=== PATIENT | female | born 1960 | race Caucasian/White ===

== ENCOUNTER 2017-09-08 19:10 | Inpatient (IN) | payer OTHER, SELFPAY ==
[~2017-09-08 19:10] MED LIST: Dexamethasone 20 MG/5 ML VIAL ONE; Glycopyrrolate 0.2 MG/ML 5 ML SYRINGE ONE; ISOVUE-370 76%-LOCM 1 ML ONE; Iopamidol 370 76% 50 ML VIAL FS ONE; Ketorolac Tromethamine 30 MG/ML VIAL ONE; Lidocaine 1% PF 5 ML VIAL ONE; Ondansetron HCl/PF 4 MG/2 ML Vial ONE; PROPOFOL 200 MG/20 ML VIAL ONE
[2017-09-08] MEDS ORDERED: Ondansetron HCl/PF 4 MG/2 ML Vial ONE (19:40)
[2017-09-08 19:43] LABS: Hemoglobin 18.2 g/dL (12.0-16.0); Mean Corpuscular HGB CONC 33.1 g/dL (32.0-36.0); Mean Corpuscular Hemoglobin 29.4 pg (27.0-31.0); Mean Corpuscular Volume 88.8 fl (81.0-99.0); Mean Platelet Volume 6.9 fL (7.4-10.4); Platelet Count 280 thou/uL (130-400); RBC Distribution Width 13.3 % (11.5-14.5); Red Blood Cell (RBC) Count 6.18 mill/uL (4.20-5.40); White Blood Cell (WBC) Count 33.2 thou/uL (4.8-10.8)
[2017-09-08 20:01] LABS: Band 3 % (5-11); Lymphocytes 4 % (21-51); MDiff Complete? YES; Monocytes 5 % (0-10); Neutrophil 88 % (42-75)
[2017-09-08 20:03] LABS: ALT (SGPT) 26 U/L (8-55); AST (SGOT) 17 U/L (5-34); Albumin 4.5 g/dL (3.5-5.0); Alkaline Phosphatase 134 U/L (40-150); Anion Gap 19 mmol/L (10-20); BUN (Urea Nitrogen) 20 mg/dL (9.8-20.1); Bilirubin, Total 2.1 mg/dL (0.2-1.2); Calc. Creatinine Clearance 0 mL/min (70-130); Calcium 10.5 mg/dL (7.8-10.44); Carbon Dioxide 26 mmol/L (22-29); Chloride 96 mmol/L (98-107); Estimated GFR-MDRD 56; Globulin 3.6 g/dL (2.4-3.5); Glucose 159 mg/dL (70-105); Lipase 24 U/L (8-78); Potassium 3.5 mmol/L (3.5-5.1); Protein, Total 8.1 g/dL (6.0-8.3); Sodium 137 mmol/L (136-145)
[2017-09-08] MEDS ORDERED: Promethazine HCl 25 MG/ML VIAL ONE (20:39)
--- NOTE | 2017-09-08 21:49 | CT ---
ABDOMEN AND PELVIC CT WITH CONTRAST 09/08/17 No prior comparison. INDICATION: Nausea and vomiting. FINDINGS: There is a large hernia of the right lower abdominal wall containing small bowel and colon. The small bowel is inflamed with surrounding fat stranding. There is a borderline size to the small bowel cristiana gurwinder, diffusely. Enteric contrast is present throughout the proximal to mid small bowel but not presen t distally limiting assessment in this regard. There is no free air or portal venous gas. No focal he patic or splenic lesion. There is a punctate hypodensity of the hepatic parenchyma, too small to furt her characterize. There is granulomatous calcification. No acute abnormality of the kidneys or adrena l glands. There is vascular calcification. There is a cyst of the left adnexa. The lung bases are toney ar. Scattered osseous degenerative change. IMPRESSION: 1. Large ventral abdominal wall hernia of the right lower quadrant with inflamed bowel, notably small bowel loops. There is generalized mild distention of the small bowel caliber which may be on e basis of a developing mechanical obstruction. Surgical consultation is warranted in this regard. 2. Cyst of left adnexa is suspected. Recommend followup with dedicated pelvic ultrasound. POS: [facility]
[2017-09-08] MEDS ORDERED: CEFAZOLIN/Water 2 GM/20 ML SYRINGE ONE (21:59)
[2017-09-08] MEDS ORDERED: Lidocaine 2% PF 5 ML VIAL ONE (22:37)
[2017-09-08] MEDS ORDERED: Bupivacaine/Epinephrine 0.25% 30 ML VIAL ONE (22:37)
[2017-09-08] MEDS ORDERED: Fentanyl 250 MCG/5 ML VIAL ONE (22:47)
--- NOTE | 2017-09-08 22:54 | HP ---
HISTORY OF PRESENT ILLNESS: Ms. Maribell Kamara is a 57-year-old female who lives in [facility], has an incarcerated incisional hernia, infraumbilical, probably from a tubal ligation incision . She has had this for a day. She has a large pannus, is morbidly obese, although she has lost inte ntionally 130 pounds since 09/2014 by changing her diet. This resolved her type 2 diabetes. She pre sents to the emergency room, evaluated by Dr. Gianni De La Garza. BUN and creatinine are normal. Glucose 159 , calcium 10.5, bilirubin 2.1. White count 33 and hemoglobin 18. CAT scan of abdomen and pelvis rev eals incarcerated ventral hernia with bowel and bowel obstruction. Left adnexal cyst was incidentall y noted. ALLERGIES: None. SOCIAL HISTORY: Tobacco none, although she smokes marijuana daily. ALCOHOL: Socially. MEDICATIONS: Losartan 50 mg a day, amlodipine 10 mg a day and Humira injections once a week. PAST SURGICAL HISTORY: Bilateral tubal ligation, laparoscopic cholecystectomy. She has never had a colonoscopy. PAST MEDICAL HISTORY: Psoriatic arthritis; hypertension, resolved; type 2 diabetes mellitus with int entional weight loss of a 130 pounds since September 2014. PRIMARY CARE PHYSICIAN: Dr. Espinoza. ELECTRIC FREIGHT CAR OPERATOR: Dr. Tammie Guzman. REVIEW OF SYSTEMS: Ten-point noncontributory. She has never had any cardiac symptoms. She has neve r had a cardiac stress test. She has never had a colonoscopy. SOCIAL: Patient is single. Her good friend is with her in the emergency room. PHYSICAL EXAMINATION: VITAL SIGNS: Weight 122 kilograms, blood pressure 107/60 and temperature 99.5 degrees. HEENT: Unremarkable. LUNGS: Clear to auscultation. CARDIAC: Regular rate and rhythm without murmur or gallop. ABDOMEN: Soft and obese. Large pannus incarcerated ventral hernia below the umbilicus. EXTREMITIES: Unremarkable. ASSESSMENT AND PLAN: 1. Incarcerated hernia. We will plan repair tonight. Risk of infection, bleeding, reoperation, rec urrence of hernia discussed. 2. Hypertension. 3. Rheumatoid arthritis, on Humira.
[2017-09-09] MEDS ORDERED: HYDROmorphone 0.5 MG/0.5 ML SYRINGE ONE (00:03)
[2017-09-09] MEDS ORDERED: SUGAMMADEX SODIUM 500 MG/5 ML VIAL ONE (00:08)
[2017-09-09] MEDS ORDERED: hydrALAZINE 20 MG/ML VIAL SLOW IVP PRN (00:18)
[2017-09-09] MEDS ORDERED: Insulin Regular 300 UNITS/3 ML VIAL SC PRN (00:18)
[2017-09-09] MEDS ORDERED: Dextrose 50% Abboject 50 ML SYRINGE SLOW IVP PRN (00:18)
[2017-09-09] MEDS ORDERED: Dextrose 5% in Water 1,000 ML IV PRN (00:18)
[2017-09-09] MEDS ORDERED: Ondansetron HCl/PF 4 MG/2 ML Vial IVP PRN (00:21)
[2017-09-09] MEDS ORDERED: Promethazine HCl 25 MG/ML VIAL IM PRN ×2 (00:21→00:24)
[2017-09-09] MEDS ORDERED: Promethazine HCl 25 MG/ML VIAL SLOW IVP PRN (00:21)
[2017-09-09] MEDS ORDERED: Fentanyl 5000 MCG/250 ML CADD IVPB PRN (00:24)
[2017-09-09] MEDS ORDERED: Naloxone HCl 0.4 mg/ml Vial IV PRN (00:24)
[2017-09-09] MEDS ORDERED: diphenhydrAMINE 25 MG CAP PO PRN (00:24)
[2017-09-09] MEDS ORDERED: diphenhydrAMINE 50 MG/ML VIAL IM PRN (00:24)
[2017-09-09] MEDS ORDERED: diphenhydrAMINE 50 MG/ML VIAL IVP PRN (00:24)
[2017-09-09] MEDS ORDERED: Zolpidem Tartrate 5 MG TAB PO PRN (00:24)
[2017-09-09] MEDS ORDERED: Communication Order-Pharmacy FS SCH (00:30)
[2017-09-09] MEDS ORDERED: Fentanyl 100 MCG/2 ML VIAL ONE (00:35)
[2017-09-09 02:05] VITALS: BMI 39.7
[2017-09-09] MEDS: Lactated Ringer's 1,000 ML IV SCH ×4 (02:23→20:55)
[2017-09-09] MEDS: Acetaminophen 1,000 MG in Premix Bag 1 BAG IVPB SCH ×3 (05:34→19:50)
[2017-09-09] MEDS: Ketorolac Tromethamine 30 MG/ML VIAL IVP SCH ×3 (05:50→18:47)
[2017-09-09 07:03] LABS: Chloride 100 mmol/L (98-107); Potassium 4.1 mmol/L (3.5-5.1); Sodium 136 mmol/L (136-145)
[2017-09-09 07:04] LABS: Calcium 9.8 mg/dL (7.8-10.44); Glucose 164 mg/dL (70-105)
[2017-09-09 07:06] LABS: Anion Gap 14 mmol/L (10-20); Carbon Dioxide 26 mmol/L (22-29)
[2017-09-09 07:08] LABS: Calc. Creatinine Clearance 130 mL/min (70-130); Estimated GFR-MDRD 60
[2017-09-09 07:09] LABS: BUN (Urea Nitrogen) 22 mg/dL (9.8-20.1)
[2017-09-09 07:58] LABS: Band 13 % (5-11); Hemoglobin 15.8 g/dL (12.0-16.0); Lymphocytes 4 % (21-51); MDiff Complete? YES; Mean Corpuscular Volume 90.4 fl (81.0-99.0); Mean Platelet Volume 7.3 fL (7.4-10.4); Monocytes 3 % (0-10); Neutrophil 80 % (42-75); Platelet Count 201 thou/uL (130-400); RBC Distribution Width 13.3 % (11.5-14.5); Red Blood Cell (RBC) Count 5.46 mill/uL (4.20-5.40); White Blood Cell (WBC) Count 26.4 thou/uL (4.8-10.8)
--- NOTE | 2017-09-09 08:15 | OP ---
DATE OF PROCEDURE: 09/08/2017 PREOPERATIVE DIAGNOSES: Strangulated incisional hernia (prior bilateral tubal ligation), morbid obes ity with more than 100-pound intentional weight loss in the last year and a half. POSTOPERATIVE DIAGNOSES: Strangulated incisional hernia (prior bilateral tubal ligation), morbid obe sity with more than 100-pound intentional weight loss in the last year and half. PROCEDURES PEFORMED: Repair of strangulated incisional hernia, infraumbilical with small-bowel resec tion and anastomosis and reduction of cecum and resection of omentum. Repair of fascia without mesh. Wound VAC application. SURGEON: Dr. Ignacio Coyne. ANESTHESIA: General. ESTIMATED BLOOD LOSS: 20 mL BLOOD TRANSFUSED: None. PROCEDURE IN DETAIL: The patient was taken to the operating room where under general anesthesia, abd omen was prepared with ChloraPrep, draped in routine fashion. Incision was made from around the umbi licus inferiorly down through the skin and subcutaneous tissue over the incarcerated hernia mass. He rnia sac identified, opened and adhesion was taken down with the LigaSure. Hernia sac resected with the LigaSure. Fascial edges were identified and through this probably a 6 cm defect. There was inca rcerated cecum and small bowel. The cecum was reduced. Once the omentum was resected with the LigaS ure, small bowel was necrotic, black. Viable small bowel mesentery divided with the cautery and seri ally divided with the LigaSure and small bowel divided on either end with 2 fires of the ANGELITO stapler. Anastomosis was created with a ANGELITO stapling technique blue load. Anastomosis created. Common defe ct closed with ANGELITO stapler. Mesenteric defect was closed with 3-0 silk [id number] sutures. Nika stomosis was reinforced with interrupted Lembert suture of 3-0 silk. Good anastomosis was palpated. Bowel contents were reduced in the abdominal cavity. Fascia was dissected free and approximated wit h continuous suture of #1 PDS. Skin and subcutaneous tissues were irrigated and irrigant evacuated. Hemostasis was noted. The umbilicus was tacked down to the fascia with #1 PDS. The umbilical skin was approximated with ellen, otherwise wound left open. Wound VAC was applied. Patient tolerated the procedure well. An NG tube was palpated in good position. Holder catheter left in place.
[2017-09-09] MEDS ORDERED: Chloraseptic Spray 180 ml Bottle PO PRN (08:28)
[2017-09-09] MEDS: Enoxaparin Sodium 40 MG/0.4 ML SYRINGE SC SCH (09:02)
[2017-09-09] MEDS: Famotidine/PF 20 mg/2ml Vial SLOW IVP SCH ×2 (09:03→20:55)
--- NOTE | 2017-09-09 11:42 | PRG ---
DATE OF SERVICE: 09/09/2017 SUBJECTIVE: Maribell Kamara is doing well today. NG tube is in place. Holder is removed. Acti vity level is good. She is walking in the hallways repeatedly/constantly. PHYSICAL EXAMINATION: VITAL SIGNS: 98.6 degrees, 105, 119/76. LUNGS: Clear to auscultation. CARDIAC: Regular rate and rhythm without murmur or gallop. ABDOMEN: Soft. Diminished bowel sounds. Wound VAC in place. NG tube in place. NG tube output pos toperatively so far not recorded. Holder output 300 mL postoperatively. LABORATORY DATA: This morning, her labs 26,000 white count, hemoglobin 15. Basic metabolic profile is normal. Glucose is 132-164. Overall, patient is doing well. Good activity level. Continue NG tube. Continue activity level. H opefully, can remove NG tube tomorrow. Continue wound VAC abdominal wound.
[2017-09-09] MEDS: Ondansetron HCl/PF 4 MG/2 ML Vial IVP PRN ×2 (13:49→18:47)
[2017-09-10] MEDS: Ketorolac Tromethamine 30 MG/ML VIAL IVP SCH ×5 (00:02→23:31)
[2017-09-10] MEDS: Acetaminophen 1,000 MG in Premix Bag 1 BAG IVPB SCH ×5 (00:03→23:31)
[2017-09-10] MEDS: Lactated Ringer's 1,000 ML IV SCH ×2 (04:28→11:38)
[2017-09-10] MEDS: Ondansetron HCl/PF 4 MG/2 ML Vial IVP PRN (05:56)
[2017-09-10] MEDS: Enoxaparin Sodium 40 MG/0.4 ML SYRINGE SC SCH (08:16)
[2017-09-10] MEDS: Famotidine/PF 20 mg/2ml Vial SLOW IVP SCH ×2 (08:16→20:35)
[2017-09-10] MEDS ORDERED: Lactated Ringer's 1,000 ML IV SCH (13:06)
--- NOTE | 2017-09-10 13:10 | PRG ---
DATE OF SERVICE: 09/10/2017 SUBJECTIVE: Maribell Kamara is doing well today. She is walking, reporting 75 laps around the [employer]'s station. She reports some irritation of the feet wearing the hospital issued socks only. I enc ouraged her to acquire better socks and walking shoes. [place] town. We will have her family b ringing these. PHYSICAL EXAMINATION: VITAL SIGNS: 98.1 degrees, 95, 126/85. NG tube output 600 mL in the last 24 hours. Holder catheter was removed yesterday. LUNGS: Clear to auscultation. CARDIAC: Regular rate and rhythm without murmur, rub or gallop. ABDOMEN: Soft. Minimal bowel sounds. LABORATORY: None today. ASSESSMENT AND PLAN: Awaiting ileus resolution. Continue good activity level. Acquire good socks a nd better walking shoes for her aggressive walking program. I anticipate NG tube to be removed in th e morning or later tonight if she passes flatus. She cannot shower.
[2017-09-10] MEDS: Dextrose 5%-Lactated Ringers 1,000 ML IV SCH (18:00)
[2017-09-11] MEDS: Dextrose 5%-Lactated Ringers 1,000 ML IV SCH ×3 (03:13→23:32)
[2017-09-11] MEDS: Ondansetron HCl/PF 4 MG/2 ML Vial IVP PRN ×2 (03:15→20:19)
[2017-09-11] MEDS: Acetaminophen 1,000 MG in Premix Bag 1 BAG IVPB SCH ×3 (05:04→17:39)
[2017-09-11] MEDS: Ketorolac Tromethamine 30 MG/ML VIAL IVP SCH ×4 (05:07→23:30)
[2017-09-11 05:32] LABS: Hemoglobin A1c 4.9 % (4.0-6.0)
[2017-09-11 06:01] LABS: Anion Gap 9 mmol/L (10-20); BUN (Urea Nitrogen) 24 mg/dL (9.8-20.1); Calc. Creatinine Clearance 162 mL/min (70-130); Calcium 8.6 mg/dL (7.8-10.44); Carbon Dioxide 29 mmol/L (22-29); Chloride 102 mmol/L (98-107); Estimated GFR-MDRD 77; Glucose 96 mg/dL (70-105); Magnesium 2.2 mg/dL (1.6-2.6); Phosphorus 2.8 mg/dL (2.3-4.7); Potassium 3.4 mmol/L (3.5-5.1); Sodium 137 mmol/L (136-145)
[2017-09-11 06:10] LABS: #Eosinphils 0.1 thou/uL (0.0-0.7); #Lymphocytes 2.1 thou/uL (1.20-3.40); #Monocytes 1.1 thou/uL (0.11-0.59); #Neutrophils 6.3 thou/uL (1.40-6.50); %Basophils 0.3 % (0.0-1.0); %Eosinophils 1.4 % (0.0-10.0); %Lymphocytes 21.7 % (21.0-51.0); %Monocytes 11.4 % (0.0-10.0); %Neutrophils 65.1 % (42.0-75.0); Hemoglobin 11.7 g/dL (12.0-16.0); Mean Corpuscular HGB CONC 32.8 g/dL (32.0-36.0); Mean Corpuscular Hemoglobin 30.4 pg (27.0-31.0); Mean Corpuscular Volume 92.5 fl (81.0-99.0); Mean Platelet Volume 7.7 fL (7.4-10.4); Platelet Count 142 thou/uL (130-400); RBC Distribution Width 12.8 % (11.5-14.5); Red Blood Cell (RBC) Count 3.84 mill/uL (4.20-5.40); White Blood Cell (WBC) Count 9.7 thou/uL (4.8-10.8)
[2017-09-11] MEDS: Enoxaparin Sodium 40 MG/0.4 ML SYRINGE SC SCH (08:31)
[2017-09-11] MEDS: Famotidine/PF 20 mg/2ml Vial SLOW IVP SCH ×2 (08:31→20:19)
--- NOTE | 2017-09-11 09:53 | PRG ---
DATE OF SERVICE: 09/11/2017 Ms. Kamara is doing well today. PHYSICAL EXAMINATION: VITAL SIGNS: Temperature 98.4 degrees, 96, 133/83. She has acquired good walking shoes to prevent blisters on her foot. She is active, walking the [address] frequently. LABORATORY: White count 9.7, hemoglobin 11.7. Basic metabolic profile is normal. Glucose 89 to 103 , hemoglobin A1c is 4.9. LUNGS: Clear to auscultation. CARDIAC: Regular rate and rhythm without murmur or gallop. ABDOMEN: Soft, quiet. Wound VAC in place, NG tube in place, 24 hour gastric drainage 1400 mL. She has not passed flatus or bowel movement. ASSESSMENT AND PLAN: NG tube output is too high. She does not have bowel function yet. Continue NG tube suction. Continue good activity level. Await GI function.
[2017-09-12] MEDS: Ketorolac Tromethamine 30 MG/ML VIAL IVP SCH ×4 (06:13→23:49)
[2017-09-12] MEDS ORDERED: Dextrose 5%-Lactated Ringers 1,000 ML IV SCH (09:41)
--- NOTE | 2017-09-12 09:56 | PRG ---
DATE OF SERVICE: 09/12/2017 SUBJECTIVE: Maribell Kamara is doing well today. PHYSICAL EXAMINATION: VITAL SIGNS: 97.7 degrees, 81, 143/86. NG tube output is 550 over the last 24 hours. CARDIAC: Regular rate and rhythm without murmur or gallop. ABDOMEN: Soft and nontender. Accu-Cheks are well within normal range. At this point, the patient i s doing well. Wound VAC in place. Bowel sounds present. No flatus or stool. LUNGS: Clear to auscultation. HEART: Regular rate and rhythm without murmur or gallop. LABORATORY DATA: None today. ASSESSMENT AND PLAN: I have discussed with patient removal of her NG tube. She would like to wait u ntil she has more definitive bowel function and thus we will ask the nurse to remove her NG tube if s he passes flatus or stool today. She has a good activity level. If she passes stool or flatus, her NG tube can be removed and we can start her on full liquids.
[2017-09-12] MEDS: Famotidine/PF 20 mg/2ml Vial SLOW IVP SCH ×2 (10:03→21:17)
[2017-09-12] MEDS: Enoxaparin Sodium 40 MG/0.4 ML SYRINGE SC SCH (10:03)
[2017-09-12] MEDS: Ondansetron HCl/PF 4 MG/2 ML Vial IVP PRN ×2 (12:51→21:18)
[2017-09-12] MEDS ORDERED: traMADol HCl 50 MG TAB PO PRN ×2 (13:33)
[2017-09-12] MEDS ORDERED: Acetaminophen 500 MG TAB PO PRN (13:33)
[2017-09-12] MEDS ORDERED: Non-Formulary Item 1 EACH (Losartan Potassium [Losartan Potassium] 1 TAB) PO SCH (21:00)
[2017-09-12] MEDS: Losartan 25 MG TAB PO SCH (21:17)
[2017-09-12] MEDS: Amlodipine 10 MG TAB PO SCH (21:27)
[2017-09-13] MEDS: Ketorolac Tromethamine 30 MG/ML VIAL IVP SCH ×4 (05:54→23:41)
[2017-09-13] MEDS: Ondansetron HCl/PF 4 MG/2 ML Vial IVP PRN ×3 (05:55→20:39)
[2017-09-13] MEDS: Enoxaparin Sodium 40 MG/0.4 ML SYRINGE SC SCH (09:44)
[2017-09-13] MEDS: Famotidine/PF 20 mg/2ml Vial SLOW IVP SCH ×2 (09:44→20:34)
--- NOTE | 2017-09-13 14:13 | PRG ---
DATE OF SERVICE: 09/13/2017 SUBJECTIVE: Ms. Kamara is doing well today. OBJECTIVE: VITAL SIGNS: Temperature 98.3, pulse 83, blood pressure 138/86. LUNGS: Clear to auscultation. CARDIAC: Regular rate and rhythm without murmur or gallop. ABDOMEN: Soft, nontender. Wound VAC in place. Bowel sounds present. She has passed flatus, but no stool. She had some vomiting this morning, but none since. Nausea seems to have improved. She is having increased belching. Diminished bowel sounds, soft. Wound VAC in place. LABORATORY DATA: None today. ASSESSMENT AND PLAN: The patient is doing well. We will continue wound VAC care. She is approved f or home wound VAC. Her bowel function is not adequate for diet advancement. Continue full liquids. Await better bowel function and continue FEATHER DUSTER WINDER until she experiences better bowel function. Encourage use of FEATHER DUSTER WINDER only if necessary.
[2017-09-13] MEDS: Amlodipine 10 MG TAB PO SCH (20:33)
[2017-09-13] MEDS: Losartan 25 MG TAB PO SCH (20:33)
[2017-09-14] MEDS: Ketorolac Tromethamine 30 MG/ML VIAL IVP SCH (06:28)
[2017-09-14] MEDS: Famotidine/PF 20 mg/2ml Vial SLOW IVP SCH (09:44)
[2017-09-14] MEDS: Ondansetron HCl/PF 4 MG/2 ML Vial IVP PRN (09:49)
[2017-09-14] MEDS: Enoxaparin Sodium 40 MG/0.4 ML SYRINGE SC SCH (09:50)
[2017-09-14] MEDS ORDERED: Fentanyl 100 MCG/2 ML VIAL SLOW IVP PRN (11:22)
[2017-09-14] MEDS ORDERED: HYDROcodone/Acetaminophen 5/325 mg Tablet PO PRN ×2 (11:22)
[2017-09-14] MEDS ORDERED: Acetaminophen 1,000 MG in Premix Bag 1 BAG IVPB PRN (11:24)
[2017-09-14] MEDS: Ibuprofen 600 MG TAB PO PRN ×2 (11:59→17:58)
[2017-09-14] MEDS ORDERED: Ondansetron ODT 8 MG TAB SL PRN (16:05)
[2017-09-14] MEDS ORDERED: Milk Of Magnesia 30 ML UDCUP PO PRN (16:05)
[2017-09-14] MEDS ORDERED: Ondansetron ORAL SOLN. 4 MG/5 ML UDCUP PO PRN ×2 (16:05)
[2017-09-14] MEDS ORDERED: Polyethylene Glycol 3350 17 GM Packet PO PRN (16:05)
[2017-09-14] MEDS ORDERED: Ondansetron ODT 8 MG TAB PO PRN (16:05)
[2017-09-14] MEDS: Ondansetron ODT 4 MG TAB PO PRN (16:51)
--- NOTE | 2017-09-14 17:26 | PRG ---
DATE OF SERVICE: 09/14/2017 SUBJECTIVE: Ms. Kamara is doing well today. She has passed flatus. She has not yet had a demetrius l movement. She states historically has become nauseated when she gets too hungry. She is toleratin g her diet well. OBJECTIVE: LUNGS: Clear to auscultation. CARDIAC: Regular rate and rhythm without murmur or gallop. ABDOMEN: Soft, nontender, bowel sounds present of good character and frequency. Wound VAC in place. EXTREMITIES: Unremarkable. ASSESSMENT AND PLAN: Doing well. I expect that she will be able to go home tomorrow. Her wound VAC care has been arranged and wound care appointments available for next week. If she has a bowel move ment tonight and tolerates her diet, she can go home tomorrow, should follow up in my office in appro ximately 2 weeks. She was told taking Humira. She should avoid Tylenol. She was told this by Dr. Aniceto hall. She is taking ibuprofen. She seems to work well for her pain. We will also in addition or palak Ultram. Dr. Ulloa is covering Monday and if she is doing well, she can go home tomorrow.
[2017-09-14] MEDS: Losartan 25 MG TAB PO SCH (21:00)
[2017-09-14] MEDS: Amlodipine 10 MG TAB PO SCH (21:00)
--- NOTE | 2017-09-14 23:03 | PRG ---
DATE OF SERVICE: 09/14/2017 SUBJECTIVE: Ms. Kamara is doing well today. She is tolerating diet. She has passed flatus, bu t no bowel movement. PHYSICAL EXAMINATION: LUNGS: Clear to auscultation. CARDIAC: Regular rate and rhythm without murmur or gallop. ABDOMEN: Soft, nontender. Excellent bowel sounds. Awaiting bowel function. I expect she will be d ischarged home tomorrow with Ultram [id number] ibuprofen for pain, and Zofran p.r.n. She will resume her home medications. She is on Humira and has been instructed by Dr. Guzman to avoid Tyle nol. Dr. Ulloa is covering for me for the next week and patient should be ready to be discharged [place] tomorrow. She has her outpatient wound VAC approved and outpatient wound care appointment for Carine khan. Wound VAC will be changed tomorrow.
[2017-09-15] MEDS: Ibuprofen 600 MG TAB PO PRN ×3 (00:04→12:11)
[2017-09-15] MEDS: Ondansetron ODT 4 MG TAB PO PRN ×3 (00:04→12:11)
[2017-09-15 07:53] VITALS: BP 113/75; TEMP 98.1
[2017-09-15] MEDS: Enoxaparin Sodium 40 MG/0.4 ML SYRINGE SC SCH (08:26)
[2017-09-15] MEDS ORDERED: Polyethylene Glycol 3350 17 GM Packet PO SCH (09:00)
--- NOTE | 2017-09-19 11:46 | DIS ---
DATE OF DISCHARGE: 09/15/2017 HISTORY: A 57-year-old female who lives in [place], presents with an incarcerated incisional hernia, infraumbilical, probably from a tubal ligation. She has had this for 24 hours, has a very l arge pannus and is morbidly obese. She has lost intentionally 130 pounds since 09/2014 been changing her diet. This resolved her type 2 diabetes. She presents to the emergency room, evaluated by Dr. Gianni De La Garza. The patient had a normal BUN and creatinine, glucose 159, calcium 10.5, bilirubin 2.1, wh ite count 33, hemoglobin 18. CT scan abdomen and pelvis reveals incarcerated ventral hernia with tamiko wel obstruction, left adnexal cyst noted. The patient was admitted, given intravenous fluids, antibi otics, taken to the operating room on 09/09/2017 for repair of a strangulated incisional hernia, infr aumbilical, small bowel resection and anastomosis, reduction of cecum and resection of omentum, repai r of fascia without mesh. Wound VAC application. The patient hospitalized and bowel function resume d. She tolerated her diet. She was sent home with a wound VAC with outpatient wound care. She will follow up in my office in approximately 2-3 weeks. Overall, she has a good prognosis. DISCHARGE MEDICATIONS: She is to resume her home medications, Humira, losartan, amlodipine, tramadol , MiraLax, Zofran p.r.n., Motrin p.r.n. She will follow up in my office in 2 weeks. No lifting over 25 pounds for 6 weeks postoperatively.
== END 2017-09-15 15:00 | disposition home or self-care (01) | DRG 330 ==
LOC: ERS 19:10 → SDC 22:14 → SURG B 09-09 00:18
PROVIDERS: ADMIT Specialist; ATTEND Specialist
PROC: 0WQF0ZZ Repair Abdominal Wall, Open Approach (ICD-10-PCS; principal; 2017-09-09)
PROC: 0DB80ZZ Excision of Small Intestine, Open Approach (ICD-10-PCS; 2017-09-09)
PROC: 0DBU0ZZ Excision of Omentum, Open Approach (ICD-10-PCS; 2017-09-09)
DX: K43.0 Incisional hernia with obstruction, without gangrene (principal); K56.7 Ileus, unspecified; E66.01 Morbid (severe) obesity due to excess calories; Z68.39 Body mass index [BMI] 39.0-39.9, adult; F12.10 Cannabis abuse, uncomplicated; L40.50 Arthropathic psoriasis, unspecified; I10 Essential (primary) hypertension; M06.9 Rheumatoid arthritis, unspecified; Z79.899 Other long term (current) drug therapy
CPT/HCPCS: 36415; 36416; 74177; 80048; 80053; 83036; 83690; 83735; 84100; 85025; 88307; 93005; 94640; 94760; 96361; 96365; 96375; C1781; J0131; J1100; J1170; J1650; J1885; J2001; J2405; J2550; J2704; J3010; J7120; J7620; Q0162; S0028

== ENCOUNTER 2017-09-19 11:09 | Outpatient (CLI) | payer OTHER, SELFPAY ==
[2017-10-13] MEDS ORDERED: Sodium Chloride 0.9% 15 ML NEB ONE (16:03)
== END 2017-09-19 11:10 | disposition home or self-care (01) ==
LOC: WCC 11:09
PROVIDERS: ATTEND Family Medicine
DX: T81.89XD Other complications of procedures, not elsewhere classified, subsequent encounter (principal)
CPT/HCPCS: 97606

== ENCOUNTER 2017-09-21 11:03 | Outpatient (CLI) | payer OTHER, SELFPAY ==
[~2017-09-21 11:03] MED LIST changes: -Dexamethasone 20 MG/5 ML VIAL ONE; -Glycopyrrolate 0.2 MG/ML 5 ML SYRINGE ONE; -ISOVUE-370 76%-LOCM 1 ML ONE; -Iopamidol 370 76% 50 ML VIAL FS ONE; -Ketorolac Tromethamine 30 MG/ML VIAL ONE; -Lidocaine 1% PF 5 ML VIAL ONE; -Ondansetron HCl/PF 4 MG/2 ML Vial ONE; -PROPOFOL 200 MG/20 ML VIAL ONE; +Sodium Chloride 0.9% 15 ML NEB ONE
== END 2017-09-21 11:04 | disposition home or self-care (01) ==
LOC: WCC 11:03
PROVIDERS: ATTEND Family Medicine
DX: T81.89XD Other complications of procedures, not elsewhere classified, subsequent encounter (principal)
CPT/HCPCS: 97606; A4218

== ENCOUNTER 2017-09-25 13:54 | Outpatient (CLI) | payer OTHER, SELFPAY | END 2017-09-25 13:55 | disposition home or self-care (01) | LOC: WCC 13:54 | PROVIDERS: ATTEND Family Medicine | DX: T81.89XD Other complications of procedures, not elsewhere classified, subsequent encounter (principal) | CPT/HCPCS: 36416; 97605; A4218 ==

== ENCOUNTER 2017-09-28 14:17 | Outpatient (CLI) | payer OTHER ==
[~2017-09-28 14:17] MED LIST changes: +Lidocaine 4% Topical Sol 50 ML BOT ONE
== END 2017-09-28 14:18 | disposition home or self-care (01) ==
LOC: WCC 14:17
PROVIDERS: ATTEND Family Medicine
DX: T81.89XD Other complications of procedures, not elsewhere classified, subsequent encounter (principal)
CPT/HCPCS: 36416; 97605; A4218; J2001

== ENCOUNTER 2017-10-02 10:09 | Outpatient (CLI) | payer OTHER ==
--- NOTE | 2017-10-02 11:59 | HP ---
DATE OF SERVICE: 10/02/2017 HISTORY OF PRESENT ILLNESS: Ms. Maribell Kamara is a very pleasant 57-year-old who presents t o the W[facility] Center for evaluation of a midline abdominal wound subsequent to repair of strangulated i ncisional hernia infraumbilical with small bowel resection and anastomosis and reduction of cecum and resection of omentum. Also at the time of surgery, the patient underwent wound VAC application. Th e patient underwent the preceding procedure by Dr. Ignacio Coyne on 09/08/2017. Upon discharge from [facility], the patient was referred to the Wound Center for assistance with dressing changes of the wound VAC. PAST MEDICAL HISTORY: 1. Hypertension. 2. Psoriatic arthritis. 3. History of diabetes mellitus. 4. Fibromyalgia. PAST SURGICAL HISTORY: 1. Laparoscopic cholecystectomy. 2. Bilateral tubal ligation. 3. Repair of strangulated incisional hernia infraumbilical with small bowel resection and anastomosi s and reduction of cecum and resection of omentum/wound VAC application on 09/08/2017. MEDICATIONS: 1. Amlodipine. 2. Losartan. 3. Zofran. 4. Ibuprofen. ALLERGIES: No known diagnosed allergies. SOCIAL HISTORY: Significant for tobacco use of 1 pack of cigarettes per day for 2 years in the past. The patient states that she stopped smoking in 1981. The patient admits to the use of alcohol only on holidays with family members. FAMILY HISTORY: Significant for diabetes mellitus. The patient states that her father was diagnosed with diabetes mellitus. Family history is negative for coronary artery disease. PHYSICAL EXAMINATION: VITAL SIGNS: Temperature 98.2, pulse 83, respirations 19, blood pressure 117/62. Accu-Chek 111. GENERAL: A 57-year-old female lying on table in examination room in no acute distress. HEENT: Normocephalic, atraumatic. NECK: No nuchal rigidity. CHEST: Clear to auscultation. CARDIOVASCULAR: Regular rate and rhythm. ABDOMEN: Soft. A midline abdominal wound is present which measures approximately 6.0 x 3.0 cm. Gra nulation tissue is present within the wound margins. Necrotic and nonviable tissue present within th e wound margins was debrided with an excisional full-thickness debridement with the use of scissors. No purulent drainage is associated with the wound. No erythema of the skin surrounding the wound is present. No maceration of the skin of the periwound is noted. EXTREMITIES: No clubbing or cyanosis. NEUROLOGIC: Grossly nonfocal. ASSESSMENT AND PLAN: 1. Midline abdominal wound as described above. Negative pressure therapy will be continued with tiki ssing changes of the wound VAC 2 times per week here in the Wound Center. The wound VAC will be plac ed to settings of 125 mmHg, continuous. No antibiotics will be prescribed today based upon the appea nader of the wound. The patient states she has an appointment with Dr. Coyne in 1 week. I will see Ms. Madden again in two weeks. 2. Hypertension. 3. Psoriatic arthritis. 4. History of diabetes mellitus. 5. Fibromyalgia.
== END 2017-10-02 10:10 | disposition home or self-care (01) ==
LOC: WCC 10:09
PROVIDERS: ATTEND Family Medicine
DX: T81.89XD Other complications of procedures, not elsewhere classified, subsequent encounter (principal); I10 Essential (primary) hypertension; L40.50 Arthropathic psoriasis, unspecified; E11.9 Type 2 diabetes mellitus without complications; M79.7 Fibromyalgia
CPT/HCPCS: 11042; 36416; 99203; G0463

== ENCOUNTER 2017-10-03 10:15 | Emergency (ER) | payer SELFPAY | END 2017-10-03 12:58 | disposition home or self-care (01) | LOC: ERS 10:15 | DX: T85.898A Other specified complication of other internal prosthetic devices, implants and grafts, initial encounter (principal); I10 Essential (primary) hypertension | CPT/HCPCS: 99282 ==

== ENCOUNTER 2017-10-04 16:03 | Emergency (ER) | payer SELFPAY | END 2017-10-04 17:31 | disposition home or self-care (01) | LOC: ERS 16:03 | DX: T81.89XA Other complications of procedures, not elsewhere classified, initial encounter (principal); I10 Essential (primary) hypertension; Z79.899 Other long term (current) drug therapy | CPT/HCPCS: 99283 ==

== ENCOUNTER 2017-10-05 11:05 | Outpatient (CLI) | payer OTHER ==
[2017-10-05] MEDS ORDERED: Sodium Chloride 0.9% 15 ML NEB ONE (17:08)
== END 2017-10-05 11:06 | disposition home or self-care (01) ==
LOC: WCC 11:05
PROVIDERS: ATTEND Family Medicine
DX: T81.89XD Other complications of procedures, not elsewhere classified, subsequent encounter (principal)
CPT/HCPCS: 97605; A4218

== ENCOUNTER 2017-10-08 10:10 | Emergency (ER) | payer OTHER, SELFPAY | END 2017-10-08 12:42 | disposition home or self-care (01) | LOC: ERS 10:10 | DX: T81.89XA Other complications of procedures, not elsewhere classified, initial encounter (principal); I10 Essential (primary) hypertension; Z79.899 Other long term (current) drug therapy | CPT/HCPCS: 99282 ==

== ENCOUNTER 2017-10-09 13:26 | Outpatient (CLI) | payer OTHER | END 2017-10-09 13:27 | disposition home or self-care (01) | LOC: WCC 13:26 | PROVIDERS: ATTEND Family Medicine | DX: T81.89XD Other complications of procedures, not elsewhere classified, subsequent encounter (principal) | CPT/HCPCS: 36416; 97605 ==

== ENCOUNTER 2017-10-13 13:41 | Outpatient (CLI) | payer OTHER | END 2017-10-13 13:42 | disposition home or self-care (01) | LOC: WCC 13:41 | PROVIDERS: ATTEND Family Medicine | DX: T81.89XD Other complications of procedures, not elsewhere classified, subsequent encounter (principal) | CPT/HCPCS: 97605 ==

== ENCOUNTER 2017-10-16 13:30 | Outpatient (CLI) | payer OTHER | END 2017-10-16 13:31 | disposition home or self-care (01) | LOC: WCC 13:30 | PROVIDERS: ATTEND Family Medicine | DX: T81.89XD Other complications of procedures, not elsewhere classified, subsequent encounter (principal) | CPT/HCPCS: 97605 ==

== ENCOUNTER 2017-10-19 10:10 | Outpatient (CLI) | payer OTHER ==
[2017-10-23] MEDS ORDERED: Sodium Chloride 0.9% 15 ML NEB ONE (16:51)
== END 2017-10-19 10:11 | disposition home or self-care (01) ==
LOC: WCC 10:10
PROVIDERS: ATTEND Family Medicine
DX: T81.89XD Other complications of procedures, not elsewhere classified, subsequent encounter (principal)
CPT/HCPCS: 36416; 97605

== ENCOUNTER 2017-10-23 14:44 | Outpatient (CLI) | payer OTHER | END 2017-10-23 14:45 | disposition home or self-care (01) | LOC: WCC 14:44 | PROVIDERS: ATTEND Family Medicine | DX: T81.89XD Other complications of procedures, not elsewhere classified, subsequent encounter (principal) | CPT/HCPCS: 36416; 97605 ==

== ENCOUNTER → 2017-10-26 | Outpatient (CLI) | payer OTHER | LOC: WCC 15:31 | PROVIDERS: ATTEND Family Medicine | DX: T81.89XD Other complications of procedures, not elsewhere classified, subsequent encounter (principal) | CPT/HCPCS: 97605 ==

== ENCOUNTER 2017-10-30 15:25 | Outpatient (CLI) | payer OTHER | END 2017-10-30 15:26 | disposition home or self-care (01) | LOC: WCC 15:25 | PROVIDERS: ATTEND Family Medicine | DX: T81.89XD Other complications of procedures, not elsewhere classified, subsequent encounter (principal) | CPT/HCPCS: 36416; 97605 ==

== ENCOUNTER 2017-11-02 13:37 | Outpatient (CLI) | payer OTHER ==
[~2017-11-02 13:37] MED LIST changes: -Lidocaine 4% Topical Sol 50 ML BOT ONE
--- NOTE | 2017-11-02 15:36 | PRG ---
DATE OF SERVICE: 11/02/2017 HISTORY: Ms. Mariblel Kamara is a very pleasant 57-year-old who presents to the Wound Center for evaluation of a midline abdominal wound subsequent to repair of strangulated incisional hernia, infraumbilical, with small bowel resection and anastomosis, reduction of cecum, and resection of omentum. Also at the time of surgery, the patient underwent wound VAC application. The patient underwent the preceding procedure by Dr. Ignacio Coyne on 09/08/2017. Upon discharge from [facility], the patient was referred to the Wound Center for assistance with dressing changes of the wound VAC. Since the patient's visit on 10/02/2017, the patient has developed a new wound of the abdomen to the right of the midline in the region of the umbilicus. The patient is now receiving negative pressure therapy for this wound. The midline abdominal wound for which the patient was referred to the Wound Center is no longer being treated with negative pressure therapy. PHYSICAL EXAMINATION: VITAL SIGNS: Temperature 98.4, pulse 83, respirations 18, blood pressure 131/ 73. Accu-Chek 148. ABDOMEN: Soft. The midline abdominal wound inferior to the umbilicus has almost healed completely. The abdominal wound to the right of the midline in the region of the umbilicus has a depth of 3.3 cm. Granulation tissue is present within the wound margins. No cellulitis of the anterior abdominal wall is appreciated. No maceration of the skin of the periwound is noted. Aerobic and anaerobic cultures of the wound were obtained with the use of a culturette. ASSESSMENT AND PLAN: 1. Midline abdominal wound as described above. As stated above, this wound has almost healed completely. Negative pressure therapy for the abdominal wound to the right of the midline in the region of the umbilicus will be continued with dressing changes of the wound VAC 2 times per week here in the Wound Center. The wound VAC will be placed to settings of 125 mmHg, continuous. Antibiotic therapy will be initiated based upon the results of the cultures obtained today if warranted. The patient will be seen by Dr. Coyne in 1 week. I will see Ms. Kamara again in two weeks. 2. Hypertension. 3. Psoriatic arthritis. 4. History of diabetes mellitus. 5. Fibromyalgia. MTDD
== END 2017-11-02 13:38 | disposition home or self-care (01) ==
LOC: WCC 13:37
PROVIDERS: ATTEND Family Medicine
DX: T81.89XD Other complications of procedures, not elsewhere classified, subsequent encounter (principal); L98.499 Non-pressure chronic ulcer of skin of other sites with unspecified severity; I10 Essential (primary) hypertension; L40.50 Arthropathic psoriasis, unspecified; E11.9 Type 2 diabetes mellitus without complications; M79.7 Fibromyalgia
CPT/HCPCS: 36416; 87070; 87076; 87077; 87186; 87205; 97605; A4218

== ENCOUNTER 2017-11-06 13:11 | Outpatient (CLI) | payer OTHER | END 2017-11-06 13:12 | disposition home or self-care (01) | LOC: WCC 13:11 | PROVIDERS: ATTEND Family Medicine | DX: T81.89XD Other complications of procedures, not elsewhere classified, subsequent encounter (principal) | CPT/HCPCS: 97605; A4218 ==

== ENCOUNTER 2017-11-09 11:14 | Outpatient (CLI) | payer OTHER | END 2017-11-09 11:15 | disposition home or self-care (01) | LOC: WCC 11:14 | PROVIDERS: ATTEND Family Medicine | DX: T81.89XD Other complications of procedures, not elsewhere classified, subsequent encounter (principal) | CPT/HCPCS: 97602 ==

== ENCOUNTER 2017-11-09 13:33 | Outpatient (CLI) | payer OTHER | END 2017-11-09 13:34 | disposition home or self-care (01) | LOC: WCC 13:33 | PROVIDERS: ATTEND Family Medicine | DX: T81.89XD Other complications of procedures, not elsewhere classified, subsequent encounter (principal) | CPT/HCPCS: 36416 ==